=== PATIENT | female | born 1960 | race Caucasian/White ===

== ENCOUNTER 2019-05-14 21:59 | Inpatient (IN) | payer MEDICARE ==
[~2019-05-14] VITALS: Ht 152.4 cm; Wt 39.7 kg
--- OUTSIDE RECORDS SUMMARY | 2019-05-14 22:02 | XMS REPORT | Clinical Summary ---
Author Author [facility] Address Unknown Phone Unavailable Care Team Providers Care Obstetrician/Gynecologist Name Role Phone Orlando Cagle PCP Unavailable Allergies No Known Allergies Medications End Date Status Medication Sig Dispensed Refills Start Date Active albuterol HFA (VENTOLIN Inhale 1 puff 0 HFA) 90 mcg/actuation by mouth via inhaler inhaler every 6 (six) hours as needed for Wheezing. Active tiotropium (SPIRIVA) 18 Inhale 18 mcg 0 mcg inhalation capsule by mouth via inhaler daily. Active BUDESONIDE/FORMOTEROL Inhale by 0 FUMARATE (SYMBICORT INHL) mouth via inhaler. Active acetaminophen-codeine Take 1 tablet 0 (TYLENOL #4) 300-60 mg by mouth per tablet every 4 (four) hours as needed for Pain. Active Problems No known active problems Encounters Care Team Description Date Type Specialty Santi Lagos RN Lung Transplant Pre-evaluation 03/07/2019 Telephone Transplant Santi Lagos RN Lung Transplant Pre-evaluation 02/21/2019 Telephone Transplant after 05/13/2018 Social History Date Tobacco Use Types Packs/Day Years Used Former Smoker Comments: quit 2016 Alcohol Use Drinks/Week oz/Week Comments No Sex Assigned at Date Recorded Not on file Industry Job Start Date Occupation Not on file Not on file Not on file Travel End Travel History Travel Start No recent travel history available. Last Filed Vital Signs Not on file Plan of Treatment Not on file Results Not on fileafter 05/13/2018 Insurance Payer Benefit Subscriber ID Type Phone Address Plan / Group [facility] xxxxxxxxxxx MEDICARE ADV [address] (Home) [place] [address]
--- OUTSIDE RECORDS SUMMARY | 2019-05-14 22:02 | XMS REPORT ---
Author Author [facility] Address Unknown Phone Unavailable Care Team Providers Care Organizational Psychologist Name Role Phone ARTURO GREGORY Unavailable Unavailable CESAR TIM Unavailable Unavailable Problems This patient has no known problems. Allergies, Adverse Reactions, Alerts This patient has no known allergies or adverse reactions. Medications This patient has no known medications. Results Test Description Test Time Test Comments Text Results Atomic Results Result Comments PT/APTT 2017-08-10 09:59:00 PROTIME (BEAKER) (test zgbc=180) 12.7 seconds 11.7-14.7 INR (BEAKER) (test dadd=087) 1.0 <=5.9 PARTIAL THROMBOPLASTIN TIME (BEAKER) (test cdfy=968) 32.6 seconds 22.5-36.0 RECOMMENDED COUMADIN/WARFARIN INR THERAPY RANGESSTANDARD DOSE: 2.0 - 3.0 Inclu naeem: PROPHYLAXIS for venous thrombosis, systemic embolization; TREATMENT for emily ous thrombosis and/or pulmonary embolus.HIGH RISK: Target INR is 2.5-3.5 for pat ients with mechanical heart valves.PLATELET [id number] 09:52:00* Test Item Value Reference Range Comments PLATELET COUNT (BEAKER) (test wjzm=331) 328 K/CU MM 150-450 FINE NEEDLE ASPIRATION BY [id number] 13:39:00Medical Cytology Report Case: [id number] Authorizing Provider: Eun Tim MD Collected: 05/09/2017 1528 Ordering Location: [facility] Endoscopy Received: 05/09/2017 1616 Services Pathologist: Cheikh Huston MD Specimen: Lung, lung mass FNA in [employer] and GMS stains are negative for organisms. Addendum electronically signed by Cheikh Huston MD on at 1:39 PMLEFT LUNG MASS FNA BY CLINICIAN (CYTOSPINS AND CELL BLOCK OF ASPIRATE): - NO MALIGNANT CELLS IDENTIFIED - SEE COMMENT Signing Path ologist Direct Phone Line: [phone] signed by Cheikh Huston MD on 05/10/2017 at 2:43 PMThe cell block shows fibrotic tissue and abu ndant necrosis. Definite multinucleated giant cells are not seen but this proce ss could represent necrosis in a granulomatous infection or possibly tumor. AFB and GMS will be performed and reported in an addendum. There is also a fragment of metaplastic (not dysplastic) squamous epithelium.37457, 53877, 33555(1.1 x 1 .5 cm) Left lung massLEFT LUNG MASS FNA30 mls in cytorich red; 4 cytospins, cell blockCollected: [id number]: [id number] [facility], Departm ent of Pathology, [address] [place] [id number], [facility], Department of [facility]ology, [address] [place] [id number], ZFCP NEEDLE ASPIRATE (FNA) [id number] 18:00:00* Test Item Value Reference Range Comments CYTOLOGY RESULT POINTER (CARLOS) (test oiek=4635) See Separate Report
--- NOTE | 2019-05-14 22:55 | NUR ---
BEDSIDE REPORT GIVEN TO TELLO FUNES.
[2019-05-14] MEDS ORDERED: LORAZEPAM INJ 2 MG/ML VIAL IV ONE (23:15)
[2019-05-14] MEDS ORDERED: SODIUM CHLORIDE 0.9% 1000ML 1,000 ML IV STA (23:16)
[2019-05-14] MEDS ORDERED: SODIUM CHLORIDE 0.9% 1000ML 1,000 ML ONE (23:23)
[2019-05-14 23:54] LABS: BASOPHILS # (AUTO) 0.1 (0.0-0.1); BASOPHILS % 0.3 % (0.0-1.0); EOSINOPHILS % 0.1 % (0.0-6.0); HEMATOCRIT 37.8 % (34.2-44.1); HEMOGLOBIN 12.3 g/dL (12.0-16.0); LYMPHOCYTES # (AUTO) 0.4 (1.0-3.2); LYMPHOCYTES % 2.5 % (18.0-39.1); MEAN CORPUSCULAR HEMOGLOBIN 31.2 pg (28-32); MEAN CORPUSCULAR HGB CONC 32.5 g/dL (31-35); MEAN CORPUSCULAR VOLUME 95.9 fL (81-99); MONOCYTES # (AUTO) 0.9 (0.2-0.8); MONOCYTES % 5.2 % (4.4-11.3); NEUTROPHILS # (AUTO) 14.4 (2.1-6.9); NEUTROPHILS % 86.3 % (38.7-80.0); PLATELET COUNT 325 x10e3/uL (140-360); RED BLOOD COUNT 3.94 x10e6/uL (3.6-5.1); RED CELL DISTRIBUTION WIDTH 12.2 % (11.7-14.4)
[2019-05-15] VITALS (15 sets, daily range): BP systolic 88–133; BP diastolic 53–90
[2019-05-15 00:08] LABS: INR 1.08; PROTHROMBIN TIME 14.5 seconds (11.9-14.5)
[2019-05-15 00:18] LABS: ALANINE AMINOTRANSFERASE 20 IU/L (0-55); ALBUMIN 3.5 g/dL (3.5-5.0); ALBUMIN/GLOBULIN RATIO 0.7 (0.8-2.0); ALKALINE PHOSPHATASE 75 IU/L (40-150); BLOOD UREA NITROGEN 22 mg/dL (7-26); BUN/CREATININE RATIO 25 (6-25); CALCIUM 10.2 mg/dL (8.4-10.2); CHLORIDE 89 mmol/L (98-107); CREATININE, SERUM 0.87 mg/dL (0.57-1.11); EST GLOMERULAR FILTRATION RATE > 60 ML/MIN (60-); GLUCOSE 77 mg/dL (74-118); POTASSIUM 3.3 mmol/L (3.5-5.1); SODIUM 132 mmol/L (136-145)
[2019-05-15 00:30] LABS: ANION GAP 23.3 mmol/L (8-16); CARBON DIOXIDE 23 mmol/L (22-29)
--- NOTE | 2019-05-15 00:38 | NUR ---
patient verbalizing reduced anxiety
[2019-05-15] MEDS ORDERED: IOPAMIDOL 370 MG/ML 200 ML INFUS..BTL INJ ONE (00:47)
[2019-05-15] MEDS ORDERED: SODIUM CHLORIDE 0.9% 50ML 50 ML ONE (00:47)
--- NOTE | 2019-05-15 01:39 | Diagnostic Imaging Report ---
EXAM: CT Chest WITH contrast (PE Protocol) INDICATION: ^SOB COMPARISON: None TECHNIQUE: Chest was scanned utilizing a multidetector helical scanner from the lung apex through the level of the diaphragm after administration of IV contrast. Thin section reconstructions were obtained with special concentration on the pulmonary arteries. Coronal and sagittal reformations were obtained. Dose modulation, iterative reconstruction, and/or weight based adjustment of the mA/kV was utilized to reduce the radiation dose to as low as reasonably achievable. Pulmonary embolism protocol was performed. IV CONTRAST: 100 mL of Isovue-370 COMPLICATIONS: None RADIATION DOSE: Total DLP: 228.50 mGy*cm Estimated effective dose: (DLP x 0.014 x size factor) mSv CTDIvol has been reviewed. It is below the limits set by the Radiation Protocol Committee (RPC). FINDINGS: LINES/ TUBES: None. LUNGS AND AIRWAYS: No filling defect is identified within the pulmonary arteries to the segmental level. Advanced emphysematous changes of the lungs. Left lung consolidations, especially in the dependent lower lobe. Bilateral upper lobe scarring with architectural distortion, left greater than right. 5 mm left upper lobe lung nodule (series 3, image 46). Airways are normal. PLEURA: Trace left pleural effusion. HEART AND MEDIASTINUM: The thyroid gland is normal. No mediastinal, hilar or axillary lymphadenopathy. Few prominent right hilar lymph nodes are seen. The heart is normal in size.. There is no pericardial effusion. . Main pulmonary artery measures 2.6 cm in diameter and the ascending aorta measures 2.9 cm. The right and left main pulmonary arteries are distended, probably due to pulmonary hypertension. Moderate atherosclerotic calcification of thoracic aorta. UPPER ABDOMEN: Too small to characterize hepatic hypodensities. Cholecystectomy. Left renal superior pole 4 mm calculus. BONES: The visualized bony thorax is within normal limits. SOFT TISSUES: Unremarkable. IMPRESSION: No pulmonary emboli. Severe emphysematous changes of the lungs. Left lung consolidations, concerning for superimposed pneumonia. Signed by: Dr. Omar Hale MD on 05/15/2019 1:36 AM
--- NOTE | 2019-05-15 01:40 | Diagnostic Imaging Report ---
EXAMINATION: CHEST SINGLE (PORTABLE) INDICATION: ^sob COMPARISON: Same day CT FINDINGS: AP view TUBES and LINES: None. LUNGS: Hyperinflated lungs. Left lung airspace opacities. PLEURA: No significant pleural effusion or pneumothorax. HEART AND MEDIASTINUM: The cardiomediastinal silhouette is unremarkable. BONES AND SOFT TISSUES: No acute osseous lesion. Soft tissues are unremarkable. UPPER ABDOMEN: No free air under the diaphragm. IMPRESSION: Hyperinflated lungs, representing emphysematous changes. Left lung airspace opacities, concerning for pneumonia. Signed by: Dr. Omar Hale MD on 05/15/2019 1:37 AM
[2019-05-15] MEDS ORDERED: CEFEPIME 1GM/NS 0.9% 50 ML 50 ML IV SCH (02:21)
[2019-05-15] MEDS ORDERED: VANCOMYCIN 1GM/NS 250 ML 250 ML IV STA (02:21)
[2019-05-15] MEDS ORDERED: SODIUM CHLORIDE 0.9% 1000ML 1,000 ML IV SCH (02:57)
--- OUTSIDE RECORDS SUMMARY | 2019-05-15 04:01 | XMS REPORT | Clinical Summary ---
Author Author [facility] Address Unknown Phone Unavailable Care Team Providers Care Olericulturist Name Role Phone Orlando Cagle PCP Unavailable [...] Lung Transplant Pre-evaluation 02/21/2019 Telephone Transplant after 05/14/2018 Social History Date Tobacco Use Types Packs/Day [...] Not on file Results Not on fileafter 05/14/2018 Insurance Payer Benefit Subscriber ID Type Phone Address Plan / Group [facility] xxxxxxxxxxx MEDICARE ADV [address] (Home) [place] [address]
[2019-05-15] MEDS ORDERED: FENTANYL 50 MCG/HR PATCH TOP SCH (04:30)
[2019-05-15] MEDS ORDERED: LORAZEPAM INJ 2 MG/ML VIAL IV PRN (04:33)
--- NOTE | 2019-05-15 04:50 | NUR ---
Pt arrived to the unit from ED via stretcher to Rm 203. Pt tachypneic and on 2L NC. and mom at bedside. Pt on IVF (NS at 125ml/hr). Will medicate pt accordingly. Patient refused to be DNR status at this time. Will pass information to incoming dayshift RN. Call murray within reach.
[2019-05-15] MEDS ORDERED: ALBUTEROL0.63 MG/3 (07:18)
[2019-05-15] MEDS ORDERED: TYLENOL WITH C1 EACH PO (07:18)
[2019-05-15] MEDS ORDERED: SYMBICORT 16010.2 GM INH (07:18)
[2019-05-15] MEDS ORDERED: SPIRIVA18 MCG INH (07:18)
[2019-05-15] MEDS ORDERED: ATIVAN2 MG PO (07:18)
[2019-05-15 08:56] LABS: CREATINE KINASE 29 IU/L (29-168)
[2019-05-15] MEDS ORDERED: POTASSIUM CHLORIDE 20 MEQ TAB CR PO ONE (11:00)
[2019-05-15] MEDS: IPRATROPIUM BROMIDE 0.02% 2.5 ML NEB NEB SCH ×3 (11:25→19:30)
[2019-05-15] MEDS: LEVALBUTEROL HCL SOLN NEBU 0.63 MG/3 ML NEB INH SCH ×2 (11:25→19:30)
--- NOTE | 2019-05-15 11:35 | NUR ---
ASSESSMENT: Spiritual Distress Pt "scared." Pt states she doesn't like hospitals. Pt's and mother at bedside. Pt's states she is "a fighter." Intervention: Provided hospitality and empathic listening. Facilitated illness review. Provided prayer. Provided business card and information on how to reach first aid teacher, if needed. Outcome: Pt & family expressed appreciation for visit. Will follow as able. TANISHA RAMOS Manager Payer Spiritual Care Department O: [phone] Pager: [phone] ([phone] number calling from)
[2019-05-15] MEDS ORDERED: DEXMEDETOMIDINE 200MCG/NS 50ML 50 ML IV PRN (11:45)
[2019-05-15 12:28] LABS: ABG HCO3 26 mmol/L (23-28); ABG PCO2 49 mmHg (41-51); ABG PH 7.34 (7.31-7.41); ABG PO2 73 mmHg (80-105)
[2019-05-15] MEDS: LORAZEPAM INJ 2 MG/ML VIAL IV PRN ×2 (12:31→21:40)
[2019-05-15] MEDS: MORPHINE SULFATE 2 MG/ML SYR 1ML IV PRN ×3 (12:45→19:57)
[2019-05-15] MEDS: DEXMEDETOMIDINE 200MCG/NS 50ML 50 ML IV PRN ×2 (14:00→19:56)
[2019-05-15] MEDS ORDERED: AMIODARONE HCL 150MG 100 ML IV ONE (14:30)
[2019-05-15] MEDS: METHYLPREDNISOLONE SOD SUCC 40 MG/ML VIAL 1ML IV SCH ×2 (15:01→21:12)
[2019-05-15] MEDS: PIPER-TAZ 3.375 GM 50 ML IV SCH ×2 (15:25→21:12)
--- NOTE | 2019-05-15 17:23 | Consultation ---
DATE OF CONSULTATION: 05/15/2019 Pulmonary Critical Care Consultation REASON FOR THE CONSULT: Shortness of breath, pneumonia. HISTORY OF PRESENT ILLNESS: Ms. Almanzar is a 58-year-old female came in with shortness of breath, history of lung cancer. The patient told me that is a stage I. She received multiple XRT treatment and she was told that it is cured. She has scarring in the left upper lobe visible on the CT scan. She came in because of shortness of breath and coughing of blood. Her CT of the chest, which was done in the emergency room were showing dense left lower lobe infiltrate and pneumonia and also has underlying severe emphysema. She smoked for 25 years, one pack per day, quit few years ago. REVIEW OF SYSTEMS: GENERAL: Denies any fever or chills. HEAD: Denies any head trauma. ENT: Denies any earache. CVS: Denies any chest pain. RESPIRATORY: Shortness of breath. The rest of review of systems are negative except as in HPI. PAST MEDICAL HISTORY: 1. History of lung cancer, being treated. 2. Anxiety. PAST SURGICAL HISTORY: None. FAMILY AND SOCIAL HISTORY: Ex-smoker and denies any alcohol use. PHYSICAL EXAMINATION: VITAL SIGNS: Temperature 97.3, pulse of 140, blood pressure 106/68, respiratory rate is 20, O2 saturation 96% on 2 L. HEENT: Head is atraumatic, normocephalic. NECK: Supple. CHEST: Markedly reduced air entry bilaterally. HEART: S1, S2 audible. ABDOMEN: Soft. EXTREMITIES: No pedal edema. NEUROLOGIC: Awake, alert. No focal neurologic deficit. LABORATORY DATA: Sodium 132, potassium 3.3, BUN 22, creatinine 0.87. White count of 16,000, hemoglobin 12.3, platelets 325. CT of the chest, I have reviewed the images, dense consolidation in the left lower lobe, underlying emphysema, scarring in the left upper lobe area. ASSESSMENT AND PLAN: A 58-year-old female with, community-acquired pneumonia in a patient who has history of lung cancer and has been a smoker with emphysema. PLAN: 1. Agree with IV Zosyn for Pseudomonas coverage. Continue vancomycin. Transfer the patient to ICU for better monitoring. 2. Tachycardia, likely part of sepsis. I will continue the patient on IV fluids. 3. The patient has anxiety as well. I will start the patient on Precedex. 4. Hemoptysis, which is [id number]. Hemoglobin and hematocrit have been stable so far. I had a detailed discussion with the patient about bronchoscopy. The patient will have a bronchoscopy tomorrow. I have explained the procedure in detail. Critical care time spent 50 minutes. MD DOMINIC Joiner/FELIPE /[id number]
[2019-05-15] MEDS: VANCOMYCIN 1GM/NS 250 ML 250 ML IV SCH (17:30)
[2019-05-15] MEDS ORDERED: SODIUM CHLORIDE 0.9% 1000ML 1,000 ML IV ONE (18:45)
[2019-05-15] MEDS ORDERED: SODIUM CHLORIDE 0.9% 1000ML 1,000 ML ONE (21:12)
[2019-05-16] VITALS (27 sets, daily range): BP systolic 86–126; BP diastolic 53–92
--- NOTE | 2019-05-16 00:10 | Consultation ---
DATE OF CONSULTATION: 05/15/2019 REASON FOR CONSULTATION: Tachycardia, respiratory distress, hemoptysis, and debility. HISTORY OF PRESENT ILLNESS: A 58-year-old lady who has known longstanding history of chronic lung disease, she is a heavy smoker. All her life is petite, but since her history of lung cancer in 2017, she lost more weight. At that time, she was treated with 35 radiation treatments in [facility]. She was doing well for almost a week. By admitting, she is doing well, she does have easy fatigability, shortness of breath on exertion, chronic cough, and old symptoms of chronic lung disease with periodic exacerbation. A week ago, she was having worsening cough. She had course of antibiotics. Her condition deteriorated and she is having more and more shortness of breath. She started having hemoptysis. She spit quite a lot of frothy blood with her cough. She came to the emergency room, again she had another episode of that. With that, she is becoming more and more tachycardic. She is having severe respiratory distress. Admitted to intensive care unit, Cardiac consultation and Pulmonary consultation were done. The patient had several breathing treatments. Patient covered with antibiotics. Patient also given Solu-Medrol. I visited the patient's home, currently sedated, relaxed and she is not intubated. Her is at bedside, her mother and her two children. Information taken from the family and more from her . Her main problems are really quite a lot pulmonary symptoms with cough, severe shortness of breath with periods of exacerbation. At her best time, she can do a few steps. She is able to do relatively medium size sentences, however, for the last week, she is getting worse. Surprisingly, there is no fever, no chills. REVIEW OF SYSTEMS: GENERAL: No fever. No chills. Weight loss. HEENT: No vision problem. No hearing problem. PULMONARY: Severe shortness of breath, hemoptysis, cough, recent antibiotic treatment. CARDIAC: No prior myocardial infarction, easy fatigability, shortness of breath on exertion and mainly pulmonary symptoms other than cardiac symptoms. GI: Poor appetite, weight loss. : Increased frequency of urination and incontinence at time. MUSCULOSKELETAL: Aches and pain in fact the patient does have chronic back pain and she is on several medication for that including Tylenol #4. NEUROLOGIC: No motor deficits. No seizure activity. Frequent headaches. PSYCHOLOGIC: The patient is very very anxious. She takes Ativan twice a day to control her anxiety symptoms. HEMATOLOGY: No easy bruising or bleeding. PAST MEDICAL HISTORY: 1. Lung cancer, status post 35 sessions of XRT at [facility] in 2017. 2. Advanced chronic lung disease. 3. Heavy smoker, stopped last year. 4. Low back pain. 5. Weight loss. 6. Anxiety, on treatment for that. FAMILY HISTORY: Father of myocardial infarction at age 52. Mother doing well at age 86. She does have two healthy sons. PHYSICAL EXAMINATION: VITAL SIGNS: Height of 5 feet 1 inch, weight of only 87 pounds, blood pressure 100/70, heart rate of 120, sinus tachycardia with PACs noted on telemetry. HEENT: Pupils are reactive. NECK: No elevation of jugular venous pulsation. CHEST: Markedly decreased air entry bilaterally, crackles. Patient using accessory muscles. HEART: Increased intensity of 2nd heart sound, right ventricular heave, ejection systolic murmur. ABDOMEN: Soft with no organomegaly. No abdominal bruits. EXTREMITIES: No cyanosis, no clubbing, no edema. NEUROLOGIC: The patient is sedated and relaxed. She is answering and she is responding to stimuli. LABORATORY DATA: Sodium of 132, potassium 3.3, BUN 32, creatinine of 0.87, bicarb of 23, glucose of 77. White blood cell count of 16.7, hemoglobin of 11.3, hematocrit 38%, and platelet count 325,000. Chest x-ray showing COPD changes, left lung consolidation. EKG, sinus tachycardia with PAC, right axis deviation, right ventricular hypertrophy. IMPRESSION AND PLAN: 1. Hemoptysis. 2. Worsening respiratory condition in a patient, who is known with severe advanced lung disease and chronic obstructive pulmonary disease. 3. History of lung cancer, status post radiation therapy. 4. Chronic back pain. 5. Anxiety. 6. Tachycardia, which is multifactorial, mainly related to her general condition and pulmonary condition. 7. Very high probability of pulmonary hypertension clinically. Plan is Pulmonary and supportive care, watching for her hemoptysis, treating her pulmonary sepsis rather than giving medication to control the heart rate. Her prognosis is guarded because of the advanced lung disease, very small size of less than 90 pounds and debility. The patient will be followed with you. We will check her labs in the morning. We will check her BMP. We will check an echocardiogram. Care is discussed with nursing staff. Questions were all answered. MD LAUREN Emerson/FELIPE /[id number]
[2019-05-16] MEDS: IPRATROPIUM BROMIDE 0.02% 2.5 ML NEB NEB SCH ×6 (03:00→19:30)
--- NOTE | 2019-05-16 03:09 | NUR ---
Code status discussed with family after it being changed in computer. Pt and do not wish for the patient to be a full code. Will be discussed with MD in am.
[2019-05-16] MEDS: MORPHINE SULFATE 2 MG/ML SYR 1ML IV PRN ×2 (04:08→07:48)
--- NOTE | 2019-05-16 04:15 | NUR ---
Rapid response called, pt went into SVT 220s. Pt's BP stable, awake and alert. Pt spontaneously converted as team arrived. Called placed to Dr. Valentine to update on pt condition and to discuss code status change per families wishes. New order noted to change code status to DNR. Call placed to Dr. Garcia to update on pt condition. No new orders noted.
[2019-05-16] MEDS: VANCOMYCIN 1GM/NS 250 ML 250 ML IV SCH ×2 (04:56→17:00)
[2019-05-16 05:03] LABS: BASOPHILS % 0.1 % (0.0-1.0); EOSINOPHILS # (AUTO) 0.2 (0.0-0.4); EOSINOPHILS % 1.1 % (0.0-6.0); HEMATOCRIT 31.7 % (34.2-44.1); HEMOGLOBIN 9.4 g/dL (12.0-16.0); LYMPHOCYTES # (AUTO) 0.2 (1.0-3.2); MEAN CORPUSCULAR HEMOGLOBIN 30.3 pg (28-32); MEAN CORPUSCULAR HGB CONC 29.7 g/dL (31-35); MONOCYTES # (AUTO) 0.9 (0.2-0.8); MONOCYTES % 6.3 % (4.4-11.3); NEUTROPHILS # (AUTO) 13.5 (2.1-6.9); NEUTROPHILS % 90.7 % (38.7-80.0); PLATELET COUNT 263 x10e3/uL (140-360); RED CELL DISTRIBUTION WIDTH 12.6 % (11.7-14.4)
[2019-05-16 05:04] LABS: MEAN CORPUSCULAR VOLUME 102.3 fL (81-99)
[2019-05-16] MEDS: SODIUM CHLORIDE 0.9% 1000ML 1,000 ML IV SCH ×3 (05:15→21:13)
[2019-05-16] MEDS: PIPER-TAZ 3.375 GM 50 ML IV SCH ×3 (05:19→21:40)
[2019-05-16] MEDS: METHYLPREDNISOLONE SOD SUCC 40 MG/ML VIAL 1ML IV SCH ×3 (05:19→21:40)
[2019-05-16 05:28] LABS: ALANINE AMINOTRANSFERASE 15 IU/L (0-55); ALBUMIN 1.9 g/dL (3.5-5.0); ALBUMIN/GLOBULIN RATIO 0.6 (0.8-2.0); ALKALINE PHOSPHATASE 50 IU/L (40-150); ANION GAP 12.1 mmol/L (8-16); BLOOD UREA NITROGEN 11 mg/dL (7-26); BUN/CREATININE RATIO 26 (6-25); CALCIUM 7.5 mg/dL (8.4-10.2); CARBON DIOXIDE 24 mmol/L (22-29); CHLORIDE 108 mmol/L (98-107); CHOL/HDL RATIO 2.2 (3.0-3.6); CHOLESTEROL 73 MD/DL (0-199); CREATININE, SERUM 0.42 mg/dL (0.57-1.11); EST GLOMERULAR FILTRATION RATE > 60 ML/MIN (60-); GLUCOSE 60 mg/dL (74-118); HDL CHOLESTEROL 33 MG/DL (40-60); LDL CHOLESTEROL 30 MG/DL (60-130); POTASSIUM 3.1 mmol/L (3.5-5.1); SODIUM 141 mmol/L (136-145); TRIGLYCERIDES 50 MG/DL (0-149)
[2019-05-16 05:50] LABS: THYROID STIMULATING HORMONE 0.128 uIU/mL (0.350-4.940)
[2019-05-16] MEDS: LEVALBUTEROL HCL SOLN NEBU 0.63 MG/3 ML NEB INH SCH ×4 (07:11→19:30)
[2019-05-16 08:05] LABS: BAND NEUTROPHILS % (MANUAL) 28 %; EOSINOPHILS % (MANUAL) 2 % (0-7); HYPOCHROMASIA SLIGHT; LYMPHOCYTES % (MANUAL) 3 % (19-48); MONOCYTES % (MANUAL) 2 % (3.4-9.0); NEUTROPHILS % (MANUAL) 65 % (40-74)
[2019-05-16 08:08] LABS: PLATELET ESTIMATE ADEQUATE; PLATELET MORPHOLOGY COMMENT NORMAL; SCHISTOCYTES MODERATE
[2019-05-16] MEDS ORDERED: POTASSIUM CHLORIDE 20MEQ/100ML 100 ML IV ONE ×2 (08:15→08:30)
--- NOTE | 2019-05-16 08:18 | Diagnostic Imaging Report ---
EXAMINATION: CHEST SINGLE (PORTABLE) INDICATION: Pneumonia COMPARISON: Chest CT of 05/15/2019 FINDINGS: TUBES and LINES: EKG leads overlie the chest. LUNGS: The lungs are mildly hyperinflated. There are airspace opacities at the left mid lung and left lung base silhouetting the left heart border and left hemidiaphragm. Bilateral upper lobe predominant emphysema. PLEURA: Possible trace left pleural effusion. No pneumothorax. HEART AND MEDIASTINUM: The heart is not enlarged. Atherosclerotic calcifications of the thoracic aorta. BONES AND SOFT TISSUES: No acute fracture or dislocation. UPPER ABDOMEN: No free air under the diaphragm. IMPRESSION: Airspace opacities at the left mid lung and left lung base concerning for pneumonia. Mildly hyperinflated lungs with bilateral upper lobe predominant emphysema. Signed by: Igor Bass MD on 05/16/2019 8:15 AM
--- NOTE | 2019-05-16 10:28 | NUR ---
ASSESSMENT: Spiritual Distress Pt's mother experiencing anticipatory grief. Pt's mother expressing emotions thru words and tears. Pt's mother recounting multiple family deaths, stating, "it's hard to lose your children." Intervention: Provided empathic listening. Reminded pt's mother of availability of production pattern maker, if needed. Outcome: Pt's mother expressed appreciation for visit. Will continue to follow as able. TANISHA RAMOS Certified Optician Spiritual Care Department O: [phone] Pager: [phone] ([phone] number calling from)
[2019-05-16] MEDS: LORAZEPAM INJ 2 MG/ML VIAL IV PRN (11:14)
[2019-05-16] MEDS ORDERED: MAGNESIUM SULFATE 2GM/50ML 50 ML IV ONE (13:00)
[2019-05-16] MEDS ORDERED: POTASSIUM CHLORIDE 20MEQ/100ML 200 ML IV ONE (13:00)
[2019-05-16] MEDS ORDERED: DIGOXIN INJ 0.25 MG/ML 2 ML AMP IV ONE (13:15)
[2019-05-16] MEDS: DILTIAZEM HCL 30 MG TAB PO SCH (17:14)
--- NOTE | 2019-05-16 21:12 | NUR ---
Discussed neuro findings with Dr. Valentine re: pupils unequal and patient unarousable to voice or pain. MD stated no need for CT. MD stated may discuss sedation with Dr. Wang if needed. Turned Precedex gtt off.
[2019-05-17] VITALS (25 sets, daily range): BP systolic 50–95; BP diastolic 37–60
[2019-05-17] MEDS: LEVALBUTEROL HCL SOLN NEBU 0.63 MG/3 ML NEB INH SCH ×4 (00:15→19:00)
[2019-05-17] MEDS: IPRATROPIUM BROMIDE 0.02% 2.5 ML NEB NEB SCH ×7 (00:15→23:00)
[2019-05-17 04:59] LABS: EOSINOPHILS # (AUTO) 0.1 (0.0-0.4); EOSINOPHILS % 0.4 % (0.0-6.0); HEMATOCRIT 31.5 % (34.2-44.1); LYMPHOCYTES # (AUTO) 0.1 (1.0-3.2); MEAN CORPUSCULAR HEMOGLOBIN 30.7 pg (28-32); MEAN CORPUSCULAR HGB CONC 28.6 g/dL (31-35); MEAN CORPUSCULAR VOLUME 107.5 fL (81-99); MONOCYTES # (AUTO) 0.9 (0.2-0.8); MONOCYTES % 6.5 % (4.4-11.3); NEUTROPHILS # (AUTO) 12.5 (2.1-6.9); NEUTROPHILS % 91.9 % (38.7-80.0); PLATELET COUNT 270 x10e3/uL (140-360); RED BLOOD COUNT 2.93 x10e6/uL (3.6-5.1); RED CELL DISTRIBUTION WIDTH 12.9 % (11.7-14.4)
[2019-05-17] MEDS: METHYLPREDNISOLONE SOD SUCC 40 MG/ML VIAL 1ML IV SCH (05:09)
[2019-05-17] MEDS: DILTIAZEM HCL 30 MG TAB PO SCH ×2 (05:09)
[2019-05-17] MEDS: PIPER-TAZ 3.375 GM 50 ML IV SCH (05:09)
[2019-05-17 05:26] LABS: ANION GAP 18.1 mmol/L (8-16); CALCIUM 9.1 mg/dL (8.4-10.2)
[2019-05-17 05:30] LABS: CREATININE, SERUM 1.45 mg/dL (0.57-1.11)
[2019-05-17 05:31] LABS: POTASSIUM 5.1 mmol/L (3.5-5.1)
[2019-05-17] MEDS ORDERED: DEXTROSE 50% SYRINGE 50 ML IV ONE (05:36)
--- NOTE | 2019-05-17 05:39 | NUR ---
Critical lab values read back to Dr. Valentine. Orders received.
[2019-05-17] MEDS ORDERED: SODIUM CHLORIDE 0.9% 1000ML 500 ML IV ONE (05:45)
--- NOTE | 2019-05-17 06:15 | NUR ---
Rechecked blood glucose after amp of D50. Blood sugar 215.
--- NOTE | 2019-05-17 06:50 | NUR ---
Respiratory team notified x [address] order.
[2019-05-17] MEDS: DEXTROSE 5%/0.45% SOD CHL 1,000 ML IV SCH ×2 (06:53→16:33)
--- NOTE | 2019-05-17 07:32 | Diagnostic Imaging Report ---
EXAMINATION: CHEST SINGLE (PORTABLE) INDICATION: Pneumonia COMPARISON: Chest CT of 05/15/2019, chest radiograph 05/16/2019. FINDINGS: TUBES and LINES: EKG leads overlie the chest. LUNGS: The lungs are mildly hyperinflated. Increasing multifocal opacities throughout the left lung. Bilateral upper lobe predominant emphysema. PLEURA: Increasing small left pleural effusion. No evidence of pneumothorax. HEART AND MEDIASTINUM: The heart is not enlarged. Atherosclerotic calcifications of the thoracic aorta. BONES AND SOFT TISSUES: No acute osseous abnormality. UPPER ABDOMEN: No free air under the diaphragm. IMPRESSION: Increasing multifocal left lung consolidation, likely representing pneumonia. Increasing small left pleural effusion. Signed by: Dr. Stuart Gary MD on 05/17/2019 7:29 AM
[2019-05-17 08:23] LABS: ANISOCYTOSIS MODERATE; BAND NEUTROPHILS % (MANUAL) 23 %; LYMPHOCYTES % (MANUAL) 3 % (19-48); METAMYELOCYTES % (MANUAL) 19 % (0-0); MONOCYTES % (MANUAL) 4 % (3.4-9.0); MYELOCYTES % (MANUAL) 1 % (0-0); NEUTROPHILS % (MANUAL) 50 % (40-74)
[2019-05-17 08:24] LABS: PLATELET ESTIMATE ADEQUATE; PLATELET MORPHOLOGY COMMENT NORMAL; RBC MORPHOLOGY COMMENT ABNORMAL; TOXIC GRANULATION MODERATE
--- NOTE | 2019-05-17 08:26 | Diagnostic Imaging Report ---
History: Decreased level of consciousness, started last night Comparison studies: None Technique: Axial images were obtained from the skull base to the vertex. Coronal and sagittal reconstructions obtained from the axial data. Dose modulation, iterative reconstruction, and/or weight based adjustment of the mA/kV was utilized to reduce the radiation dose to as low as reasonably achievable. Findings: Scalp/skull: No abnormalities. No fractures, blastic or lytic lesions. Extra-axial spaces: No masses. No fluid collections. Brain sulci: Appropriate for age. Ventricles: Normal in size and configuration. No hydrocephalus. Parenchyma: No abnormal densities. No masses, hemorrhage, acute or chronic cortical vascular insults. Sellar/suprasellar region: No abnormalities Craniocervical junction: Patent foramen magnum. No Chiari one malformation. IMPRESSION: No abnormalities . Signed by: DR Sabino Caba M.D. on 05/17/2019 8:23 AM
--- NOTE | 2019-05-17 08:34 | NUR ---
notified dr nance of ct results. updated pt's on current status and he requests comfort meassures to be provided, he understands pt is actively passing and does not want further intubation or vasoactive drugs.
[2019-05-17] MEDS ORDERED: DIGOXIN INJ 0.25 MG/ML 2 ML AMP IV ONE (09:00)
[2019-05-17] MEDS ORDERED: LORAZEPAM INJ 2 MG/ML VIAL IV PRN (10:30)
[2019-05-17] MEDS ORDERED: MORPHINE SULFATE 2 MG/ML SYR 1ML IV PRN (10:30)
--- NOTE | 2019-05-17 12:09 | NUR ---
Nutrition Screen Note Initial encounter with patient. Multiple family with Pt at bedside. Pt with terminal lung cancer, DNR, and is on comfort care. No nutrition intervention desired at this time. Nutrition Care Level: Low Signed: Orville Escobar RD, [place]
[2019-05-18] VITALS: BP 51/38
[2019-05-18 01:00] VITALS: BP 49/37
[2019-05-18] MEDS: LEVALBUTEROL HCL SOLN NEBU 0.63 MG/3 ML NEB INH SCH (01:00)
[2019-05-18] MEDS: DEXTROSE 5%/0.45% SOD CHL 1,000 ML IV SCH (01:45)
[2019-05-18 02:00] VITALS: BP 50/38
[2019-05-18 03:00] VITALS: BP 50/37
[2019-05-18 04:00] VITALS: BP 47/35
--- NOTE | 2019-05-18 05:43 | NUR ---
Patient on comfort care measures only. quality coordinator read asystole and no spontaneous respirations noted. ER , Dr. Arvizu, pronounced TOD at 0522. Family at bedside. director of research and developmentKelly, and stock broker supervisor aware.
--- NOTE | 2019-05-18 07:36 | NUR ---
patient left via stretcher with home. no issues. family has all belongings
--- NOTE | 2019-05-30 04:20 | Discharge Summary ---
PRIMARY CARE DOCTOR: Dr. Orlando Cagle. DATE OF : May 18, 2019. FINAL DIAGNOSES: Acute respiratory failure with severe sepsis due to pneumonia and end-stage chronic obstructive pulmonary disease, present on admission. SECONDARY DIAGNOSES: 1. Acute kidney injury. 2. History of lung disease. CONSULTANTS: 1. Dr. Wang, clothing examiner. 2. Dr. Garcia, Cardiology. HISTORY: Per H and P. HOSPITAL COURSE: The patient was admitted with acute respiratory failure, severe sepsis due to complicated pneumonia. The patient was on BiPAP; however, despite our best efforts, the patient continued to deteriorate rapidly including acute metabolic encephalopathy. Family decided to make her comfort care only. Subsequently, she on May 18 at 05:20 in the morning. MD HERMINIA Silvestre/FELIPE /[id number] cc: [facility]
== END 2019-05-18 07:37 | disposition expired | DRG 871 ==
LOC: ER 21:59 → ERHOLD 05-15 03:58 → MED/SURG2 05-15 04:50 → OBSVTOIN 05-15 10:47 → ICU 05-15 11:47
PROVIDERS: ADMIT Internal Medicine; ATTEND Internal Medicine
PROC: 5A09457 Assistance with Respiratory Ventilation, 24-96 Consecutive Hours, Continuous Positive Airway Pressure (ICD-10-PCS; principal; 2019-05-16)
DX: A41.9 Sepsis, unspecified organism (principal); J96.21 Acute and chronic respiratory failure with hypoxia; J15.1 Pneumonia due to Pseudomonas; G93.41 Metabolic encephalopathy; E43 Unspecified severe protein-calorie malnutrition; E87.1 Hypo-osmolality and hyponatremia; R04.2 Hemoptysis; J44.1 Chronic obstructive pulmonary disease with (acute) exacerbation; N17.9 Acute kidney failure, unspecified; J44.0 Chronic obstructive pulmonary disease with (acute) lower respiratory infection; Z68.1 Body mass index [BMI] 19.9 or less, adult; R65.20 Severe sepsis without septic shock; Z66 Do not resuscitate; E87.6 Hypokalemia; F41.9 Anxiety disorder, unspecified; Z87.891 Personal history of nicotine dependence; Z82.3 Family history of stroke; Z83.3 Family history of diabetes mellitus; Z90.49 Acquired absence of other specified parts of digestive tract; E83.42 Hypomagnesemia; Z85.118 Personal history of other malignant neoplasm of bronchus and lung; I49.8 Other specified cardiac arrhythmias; R00.0 Tachycardia, unspecified; B96.5 Pseudomonas (aeruginosa) (mallei) (pseudomallei) as the cause of diseases classified elsewhere
CPT/HCPCS: 36415; 36600; 70450; 71045; 71260; 80048; 80053; 80061; 80202; 82550; 82553; 82805; 82948; 83735; 83880; 84443; 84484; 85025; 85610; 86850; 86900; 87040; 87070; 87186; 87205; 93005; 93306; 94640; 94660; 99284; J0692; J1160; J2060; J2270; J2543; J2920; J3370; J3475; J3480; J7030; J7799; Q9967